=== PATIENT | female | born 1975 | race Caucasian/White ===

== ENCOUNTER 2018-11-29 19:04 | Emergency (ER) | payer OTHER ==
[~2018-11-29] VITALS: Ht 154.9 cm; Wt 61.2 kg
[2018-11-29 19:09] VITALS: Ht 154.9 cm; Wt 61.2 kg
[2018-11-29] MEDS ORDERED: HYDROmorphONE 1 MG/ML SYG IV STA (19:26)
[2018-11-29] MEDS ORDERED: ONDANSETRON 4 MG INJ IV STA (19:26)
[2018-11-29] MEDS ORDERED: SOD CHLORIDE 0.9% 1,000 ML IV STA (19:26)
--- NOTE | 2018-11-29 21:00 | ERD ---
ER Documentation Chief Complaint Chief Complaint AP w/ n/v/fever today only. no diarrhea HPI During the patient's encounter translation services were utilized Language: [place] Source: In person 43-year-old female who presents to the emergency room complaining of periumbilical and suprapubic abdominal pain with subjective fevers. Symptoms present for approximately 24-48 hours. Mild nausea, no vomiting. No diarrhea. No localization of the right lower quadrant or right upper quadrant. Pain is noted to be 9 out of 10, cramping and spasmodic ROS All systems reviewed and are negative except as per history of present illness. Medications Home Meds Active Scripts Ondansetron (Ondansetron Odt) 4 Mg Tab.rapdis, 4 MG PO Q6H PRN for NAUSEA AND/OR VOMITING, #20 TAB Prov:TERESA WOLF MD 11/29/18 Dicyclomine HCl (Dicyclomine HCl) 10 Mg Capsule, 10 MG PO TID PRN for ABDOMINAL CRAMPING, #20 CAP Prov:TERESA WOLF MD 11/29/18 Reported Medications Atorvastatin Calcium (Atorvastatin Calcium) 20 Mg Tablet, 20 MG PO QHS for 30 Days 11/29/18 Allergies Allergies: Coded Allergies: Penicillins (Unverified Allergy, Unknown, 11/29/18) PMhx/Soc Medical and Surgical Hx: pt denies Surgical Hx Hx Cardiac Disorders: Yes (hyperlipidemia ) Hx Alcohol Use: No Hx Substance Use: No Hx Tobacco Use: No Smoking Status: Never smoker FmHx Family History: No diabetes Physical Exam Vitals Vital Signs Date Temp Pulse Resp B/P (MAP) Pulse Ox O2 O2 Flow FiO2 Time Delivery Rate 11/29/18 85 18 123/80 98 Room Air 21:30 (94) 11/29/18 99.6 99 20 116/77 98 Room Air 19:34 (90) 11/29/18 99.6 120 20 123/75 98 19:09 (91) Physical Exam General: tearful and uncomfortable Head: Normocephalic, atraumatic. Eyes: Pupils equally reactive, EOM intact ENT: Moist mucous membranes Neck: Supple, no lymphadenopathy Respiratory: Lungs clear bilaterally, no distress Cardiovascular: RRR, no murmurs, rubs, or gallops Abdominal: Soft, mild periumbilical and suprapubic abdominal tenderness without rebound or guarding, no tenderness to McBurney's point, negative Patton sign : Deferred MSK: No edema, no unilateral swelling, 5/5 strength Neurologic: Alert and oriented, moving all extremities, normal speech, no focal weakness, no cerebellar signs Skin: No rash Psych: Normal mood Result Diagram: 11/29/18193311/29/181933 Results 24 hrs Laboratory Tests Test 11/29/18 19:34 11/29/18 21:00 11/29/18 21:06 White Blood Count 14.0 10^3/ul Red Blood Count 4.88 10^6/ul Hemoglobin 14.3 g/dl Hematocrit 42.2 % Mean Corpuscular Volume 86.5 fl Mean Corpuscular Hemoglobin 29.3 pg Mean Corpuscular 33.9 g/dl Hemoglobin Concent Red Cell Distribution Width 13.1 % Platelet Count 353 10^3/UL Mean Platelet Volume 9.1 fl Immature Granulocytes % 0.400 % Neutrophils % 90.7 % Lymphocytes % 4.5 % Monocytes % 3.9 % Eosinophils % 0.2 % Basophils % 0.3 % Nucleated Red Blood Cells % 0.0 /100WBC Immature Granulocytes # 0.050 10^3/ul Neutrophils # 12.7 10^3/ul Lymphocytes # 0.6 10^3/ul Monocytes # 0.5 10^3/ul Eosinophils # 0.0 10^3/ul Basophils # 0.0 10^3/ul Nucleated Red Blood Cells # 0.0 10^3/ul Sodium Level 142 mmol/L Potassium Level 3.7 mmol/L Chloride Level 104 mmol/L Carbon Dioxide Level 26 mmol/L Anion Gap 12 Blood Urea Nitrogen 15 mg/dl Creatinine 0.55 mg/dl Est Glomerular Filtrat > 60 mL/min Rate mL/min Glucose Level 129 mg/dl Calcium Level 9.6 mg/dl Total Bilirubin 0.7 mg/dl Direct Bilirubin 0.00 mg/dl Indirect Bilirubin 0.7 mg/dl Aspartate Amino 28 IU/L Transf (AST/SGOT) Alanine 46 IU/L Aminotransferase (ALT/SGPT) Alkaline Phosphatase 83 IU/L Total Protein 8.3 g/dl Albumin 4.7 g/dl Globulin 3.60 g/dl Albumin/Globulin Ratio 1.30 Lipase 85 U/L Urine Color YELLOW Urine Clarity CLOUDY Urine pH 5.0 Urine Specific [place] 1.028 Urine Ketones 1+ mg/dL Urine Nitrite NEGATIVE mg/dL Urine Bilirubin NEGATIVE mg/dL Urine Urobilinogen NEGATIVE mg/dL Urine Leukocyte Esterase TRACE Manjula/ul Urine Microscopic RBC 0 /HPF Urine Microscopic WBC 9 /HPF Urine Squamous Epithelial Cells MANY /HPF Urine Mucus MODERATE /HPF Urine Hemoglobin NEGATIVE mg/dL Urine Glucose NEGATIVE mg/dL Urine Total Protein NEGATIVE mg/dl POC Beta HCG, Qualitative NEGATIVE Current Medications Medications Dose Sig/Alfonzo Start Time Status Last (Trade) Ordered Route PRN Stop Time Admin Dose Reason Admin Sodium 1,000 ml @ Q1H STAT 11/29/18 DC 11/29/18 Chloride 1,000 mls/hr IV 19:26 19:34 11/29/18 20:25 1 mg ONCE STAT 11/29/18 DC 11/29/18 Hydromorphone IV 19:26 19:35 HCl 11/29/18 19:28 (Dilaudid) Ondansetron 4 mg ONCE STAT 11/29/18 DC 11/29/18 HCl (Zofran IV 19:26 19:35 Inj) 11/29/18 19:28 5 mg ONCE ONCE 11/29/18 DC 11/29/18 Metoclopramid IV 22:30 22:14 e HCl 11/29/18 22:31 (Reglan) Dicyclomine 10 mg ONCE ONCE 11/29/18 DC 11/29/18 HCl IM 22:30 23:01 (Bentyl) 11/29/18 22:31 Procedures/MDM EKG, MONITORS, & DIAGNOSTIC IMAGING: CT abdomen and pelvis: IMPRESSION: 1. No acute intra-abdominal process. Normal appendix. No nephrolithiasis. No bowel obstruction. 2. Status post cholecystectomy. 3. Small hiatal hernia. LAB INTERPRETATION: I reviewed the laboratory testing and it shows leukocytosis MEDICAL DECISION MAKING: The patient presents with generalized and suprapubic abdominal pain of unclear etiology. The patient is quite tender raising the concern for possible appen dicitis versus bowel obstruction. Low concern for pyelonephritis or vascular process. Given the patient's pain CT imaging would be appropriate. ER COURSE: * Patient still had some mild discomfort after initial therapy. Patient had complete resolution after Bentyl. * Further history was provided the patient had a large food bolus yesterday of many ribs. No significant diarrhea. Consider possible indigestion, gas, reflux. * Repeat abdominal exam is benign the patient is now tolerating oral intake. CT imaging is negative. The patient can be safely discharged. CONSULTATION: None DISPOSITION PLAN: The patient does not have an identifiable emergent medical condition that warrants inpatient hospitalization at this time. The patient is deemed safe for discharge with outpatient follow-up. We discussed follow up with the patient's primary care doctor within 24 to 48 hours as needed. We also discussed return to the emergency room for worsening symptoms or worsening condition. Outpatient referral: None required Discharge Medications: Prerna Christina Departure Diagnosis: Primary Impression: Generalized abdominal pain Additional Impression: Leukocytosis Leukocytosis type: unspecified Qualified Codes: D72.829 - Elevated white blood cell count, unspecified Condition: Stable TERESA WOLF MD Nov 29, 2018 21:00
[2018-11-29] MEDS ORDERED: ATOR20TA65 PO (21:52)
[2018-11-29] MEDS ORDERED: METOCLOPRAMIDE 10 MG INJ IV ONE (22:30)
[2018-11-29] MEDS ORDERED: DICYCLOMINE 20 MG INJ IM ONE (22:30)
[2018-11-29] MEDS ORDERED: DICY10CA40 PO (23:32)
[2018-11-29] MEDS ORDERED: ONDA4TAB14 PO (23:32)
[2018-11-29 23:35] VITALS: BP 116/81; PULSE 76; RESP 17
== END 2018-11-29 23:50 | disposition home or self-care (01) ==
LOC: E/R 19:04
DX: D72.829 Elevated white blood cell count, unspecified (principal); R10.84 Generalized abdominal pain
CPT/HCPCS: 36415; 74176; 80053; 81001; 81025; 83690; 85025; 96372; 96374; 96375; J0500; J1170; J2405; J2765; J7030; Z7502; Z7610